=== PATIENT | male | born 1960 | race Two or more races ===

== ENCOUNTER → 2022-05-15 | Emergency (ER) | payer OTHER ==
[~2022-05-15] VITALS: Ht 172.7 cm; Wt 86.2 kg
[~2022-05-15] MED LIST: NORVASC5 MG PO
== END | disposition home or self-care (01) ==
LOC: ER 10:23
DX: S93.601A Unspecified sprain of right foot, initial encounter (principal); M65.9 Synovitis and tenosynovitis, unspecified